=== PATIENT | male | born 1945 | race Caucasian/White ===

== ENCOUNTER 2020-11-16 11:08 | Inpatient (IN) | payer OTHER, MEDICARE ==
[~2020-11-16] VITALS: Ht 177.8 cm; Wt 65.5 kg
[2020-11-16] MEDS ORDERED: FINA5 PO (11:21)
[2020-11-16] MEDS ORDERED: STIOLTO RESPIMAT4 G1 INH (11:21)
[2020-11-16 11:29] LABS: BASOPHILS ABSOLUTE AUTO 0.05 K/mm3 (0.00-0.23); BASOPHILS PERCENT AUTO 0 % (0-2); EOSINOPHILS ABSOLUTE AUTO 0.81 K/mm3 (0.00-0.68); EOSINOPHILS PERCENT AUTO 7 % (0-6); Hematocrit 39.1 % (37.0-53.0); Hemoglobin 13.2 g/dL (13.5-17.5); IMMATURE GRAN ABSOLUTE AUTO 0.07 K/mm3 (0.00-0.10); IMMATURE GRAN PERCENT AUTO 1 % (0-1); LYMPHOCYTES ABSOLUTE AUTO 2.13 K/mm3 (0.84-5.20); LYMPHOCYTES PERCENT AUTO 17 % (21-46); MONOCYTES ABSOLUTE AUTO 0.68 K/mm3 (0.16-1.47); MONOCYTES PERCENT AUTO 5 % (4-13); Mean Corpuscular HGB Conc 33.8 g/dL (31.5-36.5); Mean Corpuscular Volume 95 fL (80-100); NEUTROPHILS ABSOLUTE AUTO 8.77 K/mm3 (1.96-9.15); NEUTROPHILS PERCENT AUTO 70 % (41-73); Platelet Count 200 K/mm3 (150-400); RDW Coefficient Variation 13.6 % (11.7-14.2); RDW Standard Deviation 47.3 fL (35.1-46.3); Red Blood Cell Count 4.12 M/mm3 (4.30-5.90); White Blood Cell Count 12.51 K/mm3 (4.00-11.30)
[2020-11-16 11:46] LABS: Base Excess Venous -3.4 mmol/L; Bicarbonate Venous 21.4 mmol/L (24.0-30.0); PCO2 Venous 48 mmHg (38-42); PO2 Venous 98 mmHg (38-42); pH Blood Venous 7.29 (7.34-7.37)
[2020-11-16 11:48] LABS: Alanine Aminotransfer (ALT/SGP 15 U/L (12-78); Albumin, Blood 3.5 g/dL (3.4-5.0); Albumin/Globulin Ratio 0.9 (0.8-1.8); Alk Phos 93 U/L (50-136); Anion Gap 7 mmol/L (6-16); Aspartate Aminotrans (AST/SGOT 31 U/L (12-37); Bilirubin, Total 0.4 mg/dL (0.1-1.0); Blood Urea Nitrogen 16 mg/dL (8-24); Bun/Creatinine Ratio 16.3 (12.0-20.0); CO2, Blood 24 mmol/L (21-32); Calcium, Blood 8.4 mg/dL (8.5-10.1); Chloride, Blood 108 mmol/L (98-108); Creatinine, Blood 0.98 mg/dL (0.60-1.20); Glomerular Filtration Rate >60 (60-); Glucose, Blood 122 mg/dL (70-99); Potassium, Blood 4.7 mmol/L (3.5-5.5); Sodium, Blood 139 mmol/L (136-145); Total Protein, Blood 7.5 g/dL (6.4-8.2)
[2020-11-16] MEDS ORDERED: ALBU90OI INH (13:19)
--- NOTE | 2020-11-16 19:37 | NUR ---
ADMIT NOTE RECIEVED REPORT FROM KORI AGUSTIN IN ED. PT TO ROOM AT 1615. PT ORIENTED TO ROOM AND CALL LIGHT. EDUCATED ON FALL RISK. PT STATES HIS SOB INCREASED THIS AM AND HE TOOK HIS LAST DOSES OF HIS HOME MEDICATIONS. PT STATES THAT HE LIVES WITH HIS DAUGHTER IN [place] AND HAS CAREGIVERS THAT ASSIST HIM M/T/W/F FROM AN AGENCY. WHEN ASKED WHEN HE LAST ATE, PT STATES MONDAY/MONDAY, WHEN INQUIRED FURTHER PT STATES BECAUSE NO ONE WILL MAKE IT (FOOD) FOR ME. PT A&Ox4; [place]; COOPERATIVE WITH CARE. PT RESTING IN BED. INCONTINENT EPISODE IN ED, HAS ATTENDS IN PLACE. PT REPORTS SOB AT REST, SPO2 94-95% ON RA; PT USING ACCESSORY MUSCLES, HAS DRY HACKING COUGH; LS WHEEZING T/O; NOTIFIED RT OF NEED FOR NEB. NOTIFIED DR ESTRADA OF HOME MEDICATIONS, NEW ORDER FOR Q2 PRN ALBUTEROL. ABD DISTENDED, DENIES HERNAI. PER TELE SINUS TACH 100'S. OTHER VSS. NO OTHER ACUTE CHANGES NOTED. REPORT GIVEN TO ONCOMING RN. I HAVE REVIEWED AND AGREE WITH STUDENT RN CHARTING.
[2020-11-17 03:59] LABS: BASOPHILS PERCENT AUTO 0 % (0-2); EOSINOPHILS PERCENT AUTO 0 % (0-6); Hematocrit 32.1 % (37.0-53.0); Hemoglobin 10.7 g/dL (13.5-17.5); IMMATURE GRAN ABSOLUTE AUTO 0.02 K/mm3 (0.00-0.10); IMMATURE GRAN PERCENT AUTO 0 % (0-1); LYMPHOCYTES PERCENT AUTO 10 % (21-46); MONOCYTES ABSOLUTE AUTO 0.04 K/mm3 (0.16-1.47); MONOCYTES PERCENT AUTO 1 % (4-13); Mean Corpuscular HGB 31.4 pg (26.0-34.0); Mean Corpuscular HGB Conc 33.3 g/dL (31.5-36.5); Mean Corpuscular Volume 94 fL (80-100); Mean Platelet Volume 11.6 fL (9.1-12.4); NEUTROPHILS ABSOLUTE AUTO 5.65 K/mm3 (1.96-9.15); NEUTROPHILS PERCENT AUTO 90 % (41-73); Platelet Count 193 K/mm3 (150-400); RDW Coefficient Variation 13.7 % (11.7-14.2); RDW Standard Deviation 46.8 fL (35.1-46.3); Red Blood Cell Count 3.41 M/mm3 (4.30-5.90); White Blood Cell Count 6.31 K/mm3 (4.00-11.30)
[2020-11-17 04:24] LABS: Alanine Aminotransfer (ALT/SGP 12 U/L (12-78); Alk Phos 73 U/L (50-136); Anion Gap 7 mmol/L (6-16); Aspartate Aminotrans (AST/SGOT 12 U/L (12-37); Bilirubin, Total 0.4 mg/dL (0.1-1.0); Blood Urea Nitrogen 21 mg/dL (8-24); Bun/Creatinine Ratio 20.6 (12.0-20.0); CO2, Blood 23 mmol/L (21-32); Calcium, Blood 8.2 mg/dL (8.5-10.1); Chloride, Blood 109 mmol/L (98-108); Creatinine, Blood 1.02 mg/dL (0.60-1.20); Globulin, Blood 3.1 g/dL (2.2-4.0); Glomerular Filtration Rate >60 (60-); Glucose, Blood 148 mg/dL (70-99); Magnesium, Blood 2.4 mg/dL (1.6-2.4); Potassium, Blood 3.8 mmol/L (3.5-5.5); Sodium, Blood 139 mmol/L (136-145); Total Protein, Blood 6.1 g/dL (6.4-8.2)
--- NOTE | 2020-11-17 05:25 | NUR ---
SHIFT SUMMARY PT A/O X4. RESPIRATIONS EVEN AND UNLABORED. SPO2 >94% ON RA. WHEEZES T/O. PT USING FLUTTER VALVE AT BEDSIDE. PT COUGHING WITH NONPRODUCTIVE COUGH WHEN DEEP BREATHING. RT MANAGING BREATHING TREATMENTS. TELE NS IN THE 90S. NS GTT INFUSING PER ORDERS. PT PROVIDED WITH 5MG MELATONIN PER PATIENT REQUEST/ORDER, PT DENIES EFFECTIVENESS STATING "I TAKE 4MG MELATONIN THAT MUST HAVE BEEN 1MG. THAT WAS A BABY DOSE." NO EVENTS OVER NIGHT. VSS.
--- NOTE | 2020-11-17 06:45 | NUR ---
THIS RN AGREES W/ STUDENT NURSE BRENNON's NOTE & SHIFT ASSESSMENT.
--- NOTE | 2020-11-17 10:17 | NUR ---
AM NOTE PT ALERT, ORIENTED x4. [place]. CALM AND COOPERATIVE WITH CARE. PT ON BIPAP DURING REPORT BUT HAS BEEN OFF SINCE 709 THIS AM, SPO2 >90% ON RA. LS EXP WHEEZING T/O, IMPROVED FROM PREVIOSU DAY, SOB WITH MINIMAL ACITIVY, BUT PT STATES IT HAS IMPROVED SINCE ADMISSION. PT ABLE TO SPEAK IN FULL SENTANCES. PT DENIES PAIN, CHEST PAIN, DIZZINESS/LIGHTHEADEDNESS AND NAUSEA. NO OTHER ACUTE CHANGES NOTED. VSS. WILL CONTINUE TO MONITOR.
--- NOTE | 2020-11-17 17:59 | NUR ---
SHIFT SUMMARY PT GOES INTO RESPIRATORY DISTRESS WITH MOVEMENT/ACTIVITY; BIPAP PLACED FOR RESCUS TWICE DURING SHIFT. NO OTHER SIGNIFICANT CHANGES NOTED. PT DECLINED GETTING UP IN A RECLINE THIS AFTERNOON. VSS. WILL CONTINUE TO MONITOR UNTIL REPORT GIVEN TO ONCOMING RN.
--- NOTE | 2020-11-17 22:07 | NUR ---
WAS ALERT AND ATCHING TV AT SHIFT COMMENCE. LATER RECEIVED HS MEDS, TOLERATEDWELL. HOB AT APPROX 75 DEGREES AND CALL LIGHT IN REACH. VOICED HE WANTED TO SLEEP AND REQUESTED FEW INTERRUPTIONS. INSTRUCTED NURSE TO "CLOSE THE DOOR", WHICH NURSE DID. WILL CONTINUE TO MONITOR
--- NOTE | 2020-11-18 04:13 | NUR ---
SHIFT SUMMARY HAS BEEN RESTING WITH FEW INTERRUPTIONS SINCE AROUND 2300. VOICED HE DIDNT WANT TO BE AWAKENED UNTIL AROUND 0400 SO HE COULD GET SOME SLEEP. HOWEVER, ABOUT 0330 HE WOKE UP WITH SOB AND REQUESTED RESP TREATMENT. THIS WAS GIVEN ALONG WITH PLACING BIPAP ON . BIPAP REMAINS ON AT THIS TIME HE STILL WAS HAVING RESP DIFFICULTIES. STATED THE BIPAP WAS HELPING, NOTED SATS IN THE 90'S ND HR DROPPING TO 116 FROM THE 130' - 140'S. STATED HE WAS FEELING BETER. BIPAP REMAINS ON. CALL LIGHT IN REACH
--- NOTE | 2020-11-18 07:12 | NUR ---
MED TELE REMOVED PER MD ORDER. CALL LIGHT IN REACH
--- NOTE | 2020-11-18 18:09 | NUR ---
SHIFT NOTE PT HAS BEEN RESTING WELL IN BED T/O THE DAY. PT WITH INCREASED SOB WITH MINIMAL EXERTION. REMAINS ON RA WITH SPO2 OF 99%. PT UPPER [place]. PT EDUCATED ABOUT CARDIZEM CHANGES WHICH HE EXPRESSED UNDERSTANDING OF. GRANDDAUGHTER CAME TO VISIT. PT WILL BE OBSERVED OVERNIGHT HE HAD INCREASE SOB WITH AMBULATION
[2020-11-19 04:34] LABS: BASOPHILS ABSOLUTE AUTO 0.01 K/mm3 (0.00-0.23); BASOPHILS PERCENT AUTO 0 % (0-2); EOSINOPHILS PERCENT AUTO 0 % (0-6); Hematocrit 36.1 % (37.0-53.0); Hemoglobin 11.9 g/dL (13.5-17.5); IMMATURE GRAN ABSOLUTE AUTO 0.11 K/mm3 (0.00-0.10); IMMATURE GRAN PERCENT AUTO 1 % (0-1); LYMPHOCYTES ABSOLUTE AUTO 0.39 K/mm3 (0.84-5.20); LYMPHOCYTES PERCENT AUTO 3 % (21-46); MONOCYTES ABSOLUTE AUTO 0.37 K/mm3 (0.16-1.47); MONOCYTES PERCENT AUTO 3 % (4-13); Mean Corpuscular HGB 30.9 pg (26.0-34.0); Mean Corpuscular Volume 94 fL (80-100); Mean Platelet Volume 11.9 fL (9.1-12.4); NEUTROPHILS ABSOLUTE AUTO 12.34 K/mm3 (1.96-9.15); NEUTROPHILS PERCENT AUTO 93 % (41-73); Platelet Count 215 K/mm3 (150-400); RDW Coefficient Variation 14.4 % (11.7-14.2); RDW Standard Deviation 49.6 fL (35.1-46.3); Red Blood Cell Count 3.85 M/mm3 (4.30-5.90); White Blood Cell Count 13.22 K/mm3 (4.00-11.30)
[2020-11-19 04:49] LABS: Anion Gap 8 mmol/L (6-16); Blood Urea Nitrogen 27 mg/dL (8-24); Bun/Creatinine Ratio 26.5 (12.0-20.0); CO2, Blood 23 mmol/L (21-32); Calcium, Blood 8.4 mg/dL (8.5-10.1); Chloride, Blood 111 mmol/L (98-108); Creatinine, Blood 1.02 mg/dL (0.60-1.20); Glomerular Filtration Rate >60 (60-); Glucose, Blood 112 mg/dL (70-99); Magnesium, Blood 2.2 mg/dL (1.6-2.4); Potassium, Blood 3.8 mmol/L (3.5-5.5); Sodium, Blood 142 mmol/L (136-145)
--- NOTE | 2020-11-19 04:59 | NUR ---
SHIFT SUMMARY A/O, ABLE TO MAKE NEEDS KNOWN. COOPERATIVE; HOWEVER, IRRITABLE AT TIMES. CALLS AND ANSWERS QUESTIONS APPOPRIATELY. NO C/O PAIN/DISCOMFORT. VSS/AFEBRILE. APPEARED TO REST MUCH OF THE NIGHT. NO BIPAP, REMAINED ON RA WITH SPO2 >90%. DID NOT GET UP OVERNIGHT; UTILIZED URINAL AT BEDSIDE. REQUESTED TO NOT BE DISTURBED. BED REMAINED IN LOWEST POSITION. CALL LIGHT AND BELONGINGS WITHIN REACH. CONTINUE WITH CURRENT PLAN OF CARE. REPORT TO ONCOMING RN.
[2020-11-19] MEDS ORDERED: BUSP5 PO (10:28)
[2020-11-19] MEDS ORDERED: DILT180 PO (10:29)
[2020-11-19] MEDS ORDERED: Prednisone10 MG PO (10:32)
--- NOTE | 2020-11-19 15:16 | NUR ---
PT IV REMOVED AND PRESSURE DRESSED PT EDUCATED TO REMOVE DRESSING IN 20 MINUTES. PT EDUCATED ON USE OF O2 CANISTER AND TIMES TO USE O2, PT EXPRESSED UNDERSTANDING. PT EDUCATED ON NEW MEDICATIONS AND POSSIBLE SIDE EFFECTS OF MEDUICATIONS WHICH HE EXPRESSED UNDERSTANDING OF AND AGREES THAT HE WILL CALL IF HE HAS QUESTIONS WHEN HE GETS HOME.
== END 2020-11-19 14:52 | disposition home or self-care (01) | DRG 189 ==
LOC: ER 11:08 → PCU 13:33
PROVIDERS: Emergency Medicine; Internal Medicine; Nurse Practitioner Acute Care; ADMIT Internal Medicine
PROC: 5A09357 Assistance with Respiratory Ventilation, Less than 24 Consecutive Hours, Continuous Positive Airway Pressure (ICD-10-PCS; principal; 2020-11-16)
DX: J96.01 Acute respiratory failure with hypoxia (principal); J44.1 Chronic obstructive pulmonary disease with (acute) exacerbation; I48.20 Chronic atrial fibrillation, unspecified; R65.10 Systemic inflammatory response syndrome (SIRS) of non-infectious origin without acute organ dysfunction; I25.10 Atherosclerotic heart disease of native coronary artery without angina pectoris; I10 Essential (primary) hypertension; F41.9 Anxiety disorder, unspecified; R56.9 Unspecified convulsions; N40.0 Benign prostatic hyperplasia without lower urinary tract symptoms; E78.5 Hyperlipidemia, unspecified; F17.210 Nicotine dependence, cigarettes, uncomplicated
CPT/HCPCS: 36415; 71045; 80048; 80053; 82803; 83735; 85025; 93005; 93010; 94640; 94644; 94660; 94667; 94761; 94762; 96365; 96367; 97162; 97165; 97530; 99285-25; A9270; J0456; J1650; J2930; J3475; J7030; J7050

== ENCOUNTER 2021-01-30 13:12 | Inpatient (IN) | payer OTHER, MEDICARE ==
[~2021-01-30] VITALS: Ht 172.7 cm; Wt 60.2 kg
[~2021-01-30 13:12] MED LIST: ALBU90OI INH; BUSP5 PO; DILT180 PO; FINA5 PO; Prednisone10 MG PO; STIOLTO RESPIMAT4 G1 INH
[2021-01-30 13:29] LABS: BASOPHILS ABSOLUTE AUTO 0.07 K/mm3 (0.00-0.23); BASOPHILS PERCENT AUTO 1 % (0-2); EOSINOPHILS ABSOLUTE AUTO 0.83 K/mm3 (0.00-0.68); EOSINOPHILS PERCENT AUTO 8 % (0-6); Hematocrit 39.4 % (37.0-53.0); Hemoglobin 12.7 g/dL (13.5-17.5); IMMATURE GRAN ABSOLUTE AUTO 0.04 K/mm3 (0.00-0.10); IMMATURE GRAN PERCENT AUTO 0 % (0-1); LYMPHOCYTES ABSOLUTE AUTO 2.77 K/mm3 (0.84-5.20); LYMPHOCYTES PERCENT AUTO 26 % (21-46); MONOCYTES ABSOLUTE AUTO 1.04 K/mm3 (0.16-1.47); MONOCYTES PERCENT AUTO 10 % (4-13); Mean Corpuscular HGB 30.8 pg (26.0-34.0); Mean Corpuscular HGB Conc 32.2 g/dL (31.5-36.5); Mean Corpuscular Volume 95 fL (80-100); Mean Platelet Volume 10.7 fL (9.1-12.4); NEUTROPHILS ABSOLUTE AUTO 6.09 K/mm3 (1.96-9.15); NEUTROPHILS PERCENT AUTO 56 % (41-73); Platelet Count 275 K/mm3 (150-400); RDW Coefficient Variation 13.8 % (11.7-14.2); RDW Standard Deviation 48.6 fL (35.1-46.3); Red Blood Cell Count 4.13 M/mm3 (4.30-5.90); White Blood Cell Count 10.84 K/mm3 (4.00-11.30)
[2021-01-30 13:44] LABS: Alanine Aminotransfer (ALT/SGP 14 U/L (12-78); Albumin, Blood 3.8 g/dL (3.4-5.0); Albumin/Globulin Ratio 1.1 (0.8-1.8); Alk Phos 98 U/L (50-136); Anion Gap 7 mmol/L (6-16); Aspartate Aminotrans (AST/SGOT 13 U/L (12-37); Bilirubin, Total 0.5 mg/dL (0.1-1.0); Blood Urea Nitrogen 15 mg/dL (8-24); CO2, Blood 24 mmol/L (21-32); Calcium, Blood 8.6 mg/dL (8.5-10.1); Chloride, Blood 106 mmol/L (98-108); Creatinine, Blood 1.07 mg/dL (0.60-1.20); Globulin, Blood 3.5 g/dL (2.2-4.0); Glomerular Filtration Rate >60 (60-); Glucose, Blood 141 mg/dL (70-99); Sodium, Blood 137 mmol/L (136-145); Total Protein, Blood 7.3 g/dL (6.4-8.2); Troponin I <0.015 ng/mL (0.000-0.040)
[2021-01-31 04:00] LABS: BASOPHILS PERCENT AUTO 0 % (0-2); EOSINOPHILS PERCENT AUTO 0 % (0-6); Hematocrit 36.6 % (37.0-53.0); Hemoglobin 12.2 g/dL (13.5-17.5); Mean Corpuscular HGB 31.3 pg (26.0-34.0); Mean Corpuscular HGB Conc 33.3 g/dL (31.5-36.5); Mean Corpuscular Volume 94 fL (80-100); Mean Platelet Volume 10.6 fL (9.1-12.4); Platelet Count 227 K/mm3 (150-400); RDW Coefficient Variation 13.9 % (11.7-14.2); RDW Standard Deviation 47.6 fL (35.1-46.3); White Blood Cell Count 5.93 K/mm3 (4.00-11.30)
[2021-01-31 04:01] LABS: IMMATURE GRAN ABSOLUTE AUTO 0.02 K/mm3 (0.00-0.10); IMMATURE GRAN PERCENT AUTO 0 % (0-1); LYMPHOCYTES ABSOLUTE AUTO 0.63 K/mm3 (0.84-5.20); LYMPHOCYTES PERCENT AUTO 11 % (21-46); MONOCYTES ABSOLUTE AUTO 0.03 K/mm3 (0.16-1.47); MONOCYTES PERCENT AUTO 1 % (4-13); NEUTROPHILS ABSOLUTE AUTO 5.25 K/mm3 (1.96-9.15); NEUTROPHILS PERCENT AUTO 89 % (41-73)
[2021-01-31 04:19] LABS: Anion Gap 10 mmol/L (6-16); Blood Urea Nitrogen 20 mg/dL (8-24); Bun/Creatinine Ratio 18.3 (12.0-20.0); CO2, Blood 21 mmol/L (21-32); Calcium, Blood 8.8 mg/dL (8.5-10.1); Chloride, Blood 107 mmol/L (98-108); Creatinine, Blood 1.09 mg/dL (0.60-1.20); Glomerular Filtration Rate >60 (60-); Glucose, Blood 123 mg/dL (70-99); Potassium, Blood 4.3 mmol/L (3.5-5.5); Sodium, Blood 138 mmol/L (136-145)
--- NOTE | 2021-01-31 05:49 | NUR ---
SHIFT SUMMARY PT IS ALERT AND ORIENTED X4. VITAL SIGNS ARE STABLE AND SATS ARE ABOVE 90% ON 2L NC; BIPAP FIO2 25%. THERE HAVE BEEN NO ACUTE CHANGES. PT DENIES CHEST PAIN OR SOB. PT USING URINAL WITH BRIEF IN PLACE DUE TO SOME INCONTINENCE. CALL LIGHT IS WITHIN REACH.
--- NOTE | 2021-01-31 17:33 | NUR ---
PT GIVEN BED BATH, TELEMETRY DISCONTINUED, TRANSFER ORDERS PLACED, VSS, DILL WEAKLY WITH BLE WEAKER THAN BUE; PT VOIDED IN BRIEF SEVERAL TIMES, PT REPORTED GOOD APPETITE; PT INTERMITTENTLY ON 1-2LNC WITH WHEEZING WHEN REPOSITIONED; RT PROVIDED UPDRAFT TX PER OCT; PT HAS WET RATTLING COUGH THAT IS UNPRODUCTIVE PER HIS REPORT; PT SINUS TACHYCARDIC RATE IN 110'S; PT DENIES ADDITIONAL CONCERNS AT THIS TIME
--- NOTE | 2021-01-31 20:15 | NUR ---
ASSUMED CARE PT IS ALERT AND ORIENTED. DENIES CHEST PAIN SOB. REPORT BACK PAINOF 5/10. THIS NURSE PROVIDED PAIN MANAGMENT ALERTNATIVES USCH READJUSTING IN BED OR MEDICATION, PT REFUSED. PT'S VITALS ARE STABLE WITH SATS ABOVE 92% ON 2L NC. CALL LIGHT IS WITHIN REACH. WILL CONTINUE TO MONITOR.
--- NOTE | 2021-01-31 23:38 | NUR ---
PT REFUSED MEDICATION. VERY AGITATED AND CUSSING "GET THE F OUT OF HERE," BECAUSE HE WOULD LIKE IT IF WE DID NOT DISTURB HIM WHILE SLEEPING. STS MEDICATION IS KEEPING HIM AWAKE.
--- NOTE | 2021-02-01 05:51 | NUR ---
SHIFT SUMMARY PT IS ALERT AND ORIETED. HAS BEEN VERY IRRITATED WITH STAFF AND REFUSING CARE BECAUSE HE WANTS SLEEP. PT ASKED TO BE LEFT ALONE THIS MORNING. PT HAS BEEN REFUSING TURNS, AND BRIEF CHECKS AND CHANGES. VITALS ARE STABLE. LABS WERE PUSHED TO 0700 PER CHARGE NURSE. SATS ARE STABLE AND ON 2LNC. CALL LIGHT IS WITHIN REACH.
--- NOTE | 2021-02-01 06:30 | NUR ---
PT AWAKE TALENT DEVELOPMENT COORDINATOR WAS ABLE TO CHANGE AND CLEAN PT UP. PT TOLERATED WELL. PT STATED THE HE DOES NOT REMEMBER REFUSING CARE LAST NIGHT. PT NOW PLEASANT BUT REFUSED SOLUMEDROL. GAVE PT MED EDUCATION, PT STILL REFUSED.
[2021-02-01 07:16] LABS: BASOPHILS PERCENT AUTO 0 % (0-2); EOSINOPHILS PERCENT AUTO 0 % (0-6); Hematocrit 33.1 % (37.0-53.0); Hemoglobin 11.2 g/dL (13.5-17.5); IMMATURE GRAN ABSOLUTE AUTO 0.06 K/mm3 (0.00-0.10); IMMATURE GRAN PERCENT AUTO 1 % (0-1); LYMPHOCYTES ABSOLUTE AUTO 0.48 K/mm3 (0.84-5.20); LYMPHOCYTES PERCENT AUTO 4 % (21-46); MONOCYTES ABSOLUTE AUTO 0.37 K/mm3 (0.16-1.47); MONOCYTES PERCENT AUTO 3 % (4-13); Mean Corpuscular HGB 31.1 pg (26.0-34.0); Mean Corpuscular HGB Conc 33.8 g/dL (31.5-36.5); Mean Corpuscular Volume 92 fL (80-100); Mean Platelet Volume 10.9 fL (9.1-12.4); NEUTROPHILS ABSOLUTE AUTO 12.01 K/mm3 (1.96-9.15); NEUTROPHILS PERCENT AUTO 93 % (41-73); Platelet Count 215 K/mm3 (150-400); RDW Coefficient Variation 14.3 % (11.7-14.2); RDW Standard Deviation 48.3 fL (35.1-46.3); White Blood Cell Count 12.92 K/mm3 (4.00-11.30)
[2021-02-01 07:35] LABS: Calcium, Blood 8.5 mg/dL (8.5-10.1); Creatinine, Blood 1.27 mg/dL (0.60-1.20); Magnesium, Blood 2.2 mg/dL (1.6-2.4); Potassium, Blood 4.1 mmol/L (3.5-5.5)
[2021-02-01] MEDS ORDERED: IPRAT-ALBUT 0.5-3 ML INH (13:27)
[2021-02-01] MEDS ORDERED: AZIT250 PO (13:28)
[2021-02-01] MEDS ORDERED: Prednisone10 MG PO (13:30)
--- NOTE | 2021-02-01 15:18 | NUR ---
DISCHARGE DC INSTRUCTIONS PROVIDED TO PT. PT EDUCATED ON ALL CHANGES AND FOLLOW-UP APPOINTMENTS. ALL QUESTIONS ANSWERED. CARE MANAGEMENT SET UP HOME NEBULIZER AND HOME O2. FAMILY CALLED AND NOTIFIED PER PT REQUEST. PT TO BE TAKEN OUT BY WC.
== END 2021-02-01 16:15 | disposition home health service (06) | DRG 189 ==
LOC: ER 13:12 → PCU 16:32 → ERHOLD 16:32 → PCU 19:41
PROVIDERS: Emergency Medicine; Nurse Practitioner Acute Care; ADMIT Internal Medicine
PROC: 5A09357 Assistance with Respiratory Ventilation, Less than 24 Consecutive Hours, Continuous Positive Airway Pressure (ICD-10-PCS; principal; 2021-01-30)
DX: J96.21 Acute and chronic respiratory failure with hypoxia (principal); E43 Unspecified severe protein-calorie malnutrition; J44.1 Chronic obstructive pulmonary disease with (acute) exacerbation; Z68.1 Body mass index [BMI] 19.9 or less, adult; E44.0 Moderate protein-calorie malnutrition; J96.22 Acute and chronic respiratory failure with hypercapnia; I25.10 Atherosclerotic heart disease of native coronary artery without angina pectoris; F17.210 Nicotine dependence, cigarettes, uncomplicated; I10 Essential (primary) hypertension; Z95.5 Presence of coronary angioplasty implant and graft; Z99.81 Dependence on supplemental oxygen
CPT/HCPCS: 36415; 71045; 80048; 80053; 83735; 83880; 84145; 84484; 85025; 85379; 93005; 93010; 94640; 94644; 94660; 94761; 94762; 96374; 99285-25; A9270; J1650; J2930

== ENCOUNTER 2021-09-23 01:17 | Inpatient (IN) | payer OTHER ==
[~2021-09-23] VITALS: Ht 175.3 cm; Wt 64.7 kg
[~2021-09-23 01:17] MED LIST changes: +AZIT250 PO; +IPRAT-ALBUT 0.5-3 ML INH
[2021-09-23 01:27] LABS: PCO2 Arterial 46.2 mmHg (35-45); pH Blood Arterial 7.23 (7.35-7.45)
[2021-09-23 02:04] LABS: Influenza A, PCR NEGATIVE (NEGATIVE); Influenza B, PCR NEGATIVE (NEGATIVE); Resp Syncytial Virus, PCR NEGATIVE (NEGATIVE); SARS-Cov-2 (COVID-19) PCR, MMC NEGATIVE (NEGATIVE)
[2021-09-23 02:04] LABS: Albumin, Blood 3.7 g/dL (3.4-5.0); BASOPHILS ABSOLUTE AUTO 0.06 K/mm3 (0.00-0.23); BASOPHILS PERCENT AUTO 1 % (0-2); Bilirubin, Total 0.5 mg/dL (0.1-1.0); Calcium, Blood 8.8 mg/dL (8.5-10.1); Creatinine, Blood 1.23 mg/dL (0.60-1.20); EOSINOPHILS ABSOLUTE AUTO 0.66 K/mm3 (0.00-0.68); EOSINOPHILS PERCENT AUTO 5 % (0-6); Globulin, Blood 3.8 g/dL (2.2-4.0); Hematocrit 38.4 % (37.0-53.0); Hemoglobin 12.2 g/dL (13.5-17.5); IMMATURE GRAN ABSOLUTE AUTO 0.04 K/mm3 (0.00-0.10); IMMATURE GRAN PERCENT AUTO 0 % (0-1); LYMPHOCYTES ABSOLUTE AUTO 0.91 K/mm3 (0.84-5.20); LYMPHOCYTES PERCENT AUTO 7 % (21-46); MONOCYTES ABSOLUTE AUTO 0.72 K/mm3 (0.16-1.47); MONOCYTES PERCENT AUTO 6 % (4-13); Mean Corpuscular HGB 30.6 pg (26.0-34.0); Mean Corpuscular HGB Conc 31.8 g/dL (31.5-36.5); Mean Corpuscular Volume 96 fL (80-100); Mean Platelet Volume 11.6 fL (9.1-12.4); NEUTROPHILS ABSOLUTE AUTO 10.69 K/mm3 (1.96-9.15); NEUTROPHILS PERCENT AUTO 82 % (41-73); Platelet Count 224 K/mm3 (150-400); Potassium, Blood 4.7 mmol/L (3.5-5.5); RDW Coefficient Variation 14.2 % (11.7-14.2); RDW Standard Deviation 50.2 fL (35.1-46.3); Red Blood Cell Count 3.99 M/mm3 (4.30-5.90); Total Protein, Blood 7.5 g/dL (6.4-8.2); White Blood Cell Count 13.08 K/mm3 (4.00-11.30)
[2021-09-23 04:37] LABS: Thyroid Stimulating Hormone 4.92 uIU/mL (0.360-4.800)
[2021-09-23 05:44] LABS: Anti-Xa UFH, PHA Monitoring <0.10 IU/mL; International Normalized Ratio 1.05
[2021-09-23 07:40] LABS: Bicarbonate Venous 17.8 mmol/L (24.0-30.0); PCO2 Venous 33.8 mmHg (38-42); PO2 Venous 65.1 mmHg (38-42); pH Blood Venous 7.32 (7.34-7.37)
[2021-09-23 07:59] LABS: Free Thyroxine 1.21 ng/dL (0.70-1.60); Triiodothyronine, Free 2.35 pg/mL (2.18-3.98)
[2021-09-23 08:01] LABS: Glucose, Blood 145 mg/dL (70-99)
--- NOTE | 2021-09-23 13:57 | NUR ---
Spoke with Primary RN Riri and discussed case. Supportive visit this afternoon to establish rapport. Pt resting in bed and on AIRVO at time of visit. Pt reports having 2 daughters who live out of state. His 2 sons have since past away, one from suicide and the other for undisclosed medical reasons. Pt reports living at home with his daughter in law and her children. Pt reports daughter in law is supportive some of the time. Pt reports [facility]. He reports not seeing PCP on a regular basis. Assessed Pt's understanding of his health and COPD. Pt states his COPD is "bad". He states he has lived longer than what the doctors have told him. Continued therapeutic listening. Ended visit to allow Pt to continue to watch the [employer] on television. Palliative Care will remain available.
--- NOTE | 2021-09-23 17:04 | NUR ---
SHIFT SUMMARY; ASSUMED CARE AT 0700, BIPAP IN PLACE. APPEARS AGITATED AND FIDGITY. LAB TO ROOM TO DRAW LABS, REFUSED, DISCUSSED NEED FOR REPEAT LABS EVENTUALLY AGREES. BIPAP WORN UNTIL APPROX 0900, REQUESTED REMOVAL TO EAT. DISCUSSED WITH RT. RT TO ROOM AND PLACED ON AIRVO 30L 28%. A/A/OX4. SOMEWHAT DISHELVED, REFUSES BED BATH, ORAL CARE OR ANY HYGIENE. STATES HAD A BED BATH A HOME FROM CAREGIVER SEVERAL DAYS AGO AND THATS WHAT CAUSED THIS PROBLEM. COMPLIANT WITH CARE FOR REMAINING PORTION OF DAY. HEPARIN INSUFING AT 15GTT. REMAINED IN SINUS RHYTHYM, VSS, SATS 97%. REPOSITIONS SELF IN BED NEEDED AND USES URINAL. NO ACUTE CHANGES, WILL CONTINUE TO MONITOR AND TREAT UNTIL CHANGE OF SHIFT.
--- NOTE | 2021-09-24 05:55 | NUR ---
SHIFT SUMMARY PT ALERT AND ORIENTED X4. HR SR-ST 90-110'S. ON AIRVO 30L 23% FIO2. SATS OVER 96%. BP STABLE. HEP GTT INFUSING. VOIDING INDEPENDENTLY WITH BEDSIDE URINAL. UNCOOPERATIVE WITH CARE. REFUSES Q6 BLOOD SUGAR CHECKS "STATING, MY BLOOD SUGAR IS FINE". REFUSES BLOOD DRAWS OR FIGHTS AGAINST THEM. REFUSES A BREATHING TREATMENT AT 0330. AT 0500 HR STARTED TACHYING UP, RESPIRATIONS INCREASED, AND PT WAS WHEEZING T/O LUNGS BILATERALLY. RT NOTIFED, BREATHING TX ADMINISTERED. WHEEZING DECREASED SIGNIFICANTLY. PT NOW RESTING IN BED WITH CALL ALARM AT SIDE. WILL CONTINUE TO MONITOR UNTIL REPORT GIVEN TO DAYSHIFT RN.
--- NOTE | 2021-09-24 15:08 | NUR ---
Update: MD notified regarding frequent conversion between Afib and ST. ordered additional PO Cardizem IR dose to be administered now. Will continue to monitor.
--- NOTE | 2021-09-24 16:34 | NUR ---
Pt remains A&Ox4. VSS with exception to afternoon conversion between Afib and ST. When converted to afib, BK=541-181's. Scheduled PO Cardizem started with additional dose given in afternoon. No c/o pain. Afebrile. AUO. No BM. Tolerating current diet. Successfully weaned pt to RA. PT attempted eval- pt refused despite numerous attempts to re-educate. Attempted to help pt to chair for meals, pt refused. Frequent rounds to ensure pt safety. Pt encouraged to reposition self q 2 hrs and offload pressure points to prevent pressure ulcers, pt verbalized understanding. Pt in no apparent distress at this time. Will continue to monitor until transfer of care to oncoming RN.
--- NOTE | 2021-09-24 19:30 | NUR ---
PATIENT'S HEART RATE UP TO 150'S-160'S AT 1836, IN A.FIB. DURING SHIFT CHANGE REPORT, PATIENT DENIED CHEST PAIN, PALPITATIONS, AND SHORTNESS OF BREATH. AT 1926, HE CONVERTED BACK TO SINUS RHYTHM AND HEART RATE WAS DOWN INTO THE LOW 100'S - 1TEENS.
--- NOTE | 2021-09-25 00:55 | NUR ---
DNR BAND PLACED TO PATIENT'S LEFT WRIST. VERIFIED WITH ELIZABETH CRESPO RN.
--- NOTE | 2021-09-25 03:32 | NUR ---
AT 0254, PATIENT'S HEART RATE SPIKED UP TO 170'S. HEART RATE BOUNCES UP TO 170'S, THEN DOWN TO 120'S, UP TO 160'S, DOWN TO 90, ETC. CONVERTED TO A.FIB. WENT INTO PATIENT'S ROOM. BP 123/82. DENIES CHEST PAIN, PALPITATIONS, AND SHORTNESS OF BREATH. SAYS THAT HE JUST CAN'T SLEEP BECAUSE HIS "STOMACH FEELS FULL". LAST BM WAS 09/21. ABD IS DISTENDED AND FEELS FULL. HEART RATE SPIKES OCCURRED DURING DAYSHIFT APPROX 12 HOURS AGO (1500) AND HE RECEIVED AN ADDITIONAL DOSE OF CARDIZEM. CALLED DR. HENLEY AND NOTIFIED HER OF THE ABOVE. ORDERS RECEIVED FOR ABD XRAY, BOWEL MEDS, AND CARDIZEM.
[2021-09-25 04:17] LABS: BASOPHILS ABSOLUTE AUTO 0.01 K/mm3 (0.00-0.23); BASOPHILS PERCENT AUTO 0 % (0-2); EOSINOPHILS PERCENT AUTO 0 % (0-6); Hematocrit 32.2 % (37.0-53.0); Hemoglobin 10.8 g/dL (13.5-17.5); IMMATURE GRAN PERCENT AUTO 1 % (0-1); LYMPHOCYTES ABSOLUTE AUTO 0.44 K/mm3 (0.84-5.20); LYMPHOCYTES PERCENT AUTO 3 % (21-46); MONOCYTES ABSOLUTE AUTO 0.38 K/mm3 (0.16-1.47); MONOCYTES PERCENT AUTO 3 % (4-13); Mean Corpuscular HGB 30.9 pg (26.0-34.0); Mean Corpuscular HGB Conc 33.5 g/dL (31.5-36.5); Mean Corpuscular Volume 92 fL (80-100); Mean Platelet Volume 11.6 fL (9.1-12.4); NEUTROPHILS ABSOLUTE AUTO 14.58 K/mm3 (1.96-9.15); NEUTROPHILS PERCENT AUTO 94 % (41-73); Platelet Count 189 K/mm3 (150-400); RDW Coefficient Variation 14.6 % (11.7-14.2); RDW Standard Deviation 49.4 fL (35.1-46.3); White Blood Cell Count 15.51 K/mm3 (4.00-11.30)
[2021-09-25 04:54] LABS: Anion Gap 10 mmol/L (6-16); Blood Urea Nitrogen 41 mg/dL (8-24); Bun/Creatinine Ratio 36.9 (12.0-20.0); CO2, Blood 19 mmol/L (21-32); Calcium, Blood 8.3 mg/dL (8.5-10.1); Chloride, Blood 111 mmol/L (98-108); Creatinine, Blood 1.11 mg/dL (0.60-1.20); Glomerular Filtration Rate >60 (60-); Glucose, Blood 132 mg/dL (70-99); Potassium, Blood 3.7 mmol/L (3.5-5.5); Sodium, Blood 140 mmol/L (136-145)
--- NOTE | 2021-09-25 05:06 | NUR ---
HEART RATE CONTINUED TO JUMP UP TO 150'S-170'S BUT THEN BOUNCE DOWN TO 90'S - LOW 100'S. TRENDED DOWN AND FINALLY CONVERTED TO SINUS RHYTHM AT 0448. HEART RATE IN THE 80'S-90'S AT THIS TIME.
--- NOTE | 2021-09-25 07:07 | NUR ---
SHIFT SUMMARY: PATIENT A/OX3. HAS DENIED PAIN THROUGHOUT THE SHIFT. HAD INTERMITTENT RUNS OF AFIB WITH RVR, OCCURING AT THE BEGINNING OF THE SHIFT AND APPROX 0300. AT THE BEGINNING OF THE SHIFT PATIENT CONVERTED BACK TO SINUS RHYTHM ON HIS OWN AT 1926. THEN AT 0254 HIS HEART RATE WENT UP AND HE CONVERTED TO AFIB. ADDITIONAL CARDIZEM 60 MG PO GIVEN AT 0357 AND HE CONVERTED BACK TO SINUS RHYTHM AT 8. DURING THAT TIME HIS HEART RATE WOULD JUMP UP TO THE 170'S AT TIMES. HE DENIED CHEST PAIN, SHORTNESS OF BREATH, AND PALPITATIONS DURING THESE EPISODES. ON ROOM AIR. HE HAS BEEN NAUSEAS THROUGHOUT THE SHIFT, STATES HIS ABD FEELS FULL. ZOFRAN AND COLACE GIVEN. ABD XRAY COMPLETED. REFUSED ALL REPOSITIONING. REFUSED ALL ORAL CARE, SKIN CARE. STATES HE DOESN'T WANT TO GET OUT OF BED "SO THE NURSES CAN CHECK SOMETHING OFF THEIR LIST." EDUCATED HIM REGARDING IMPORTANCE OF REPOSITIONING TO PREVENT ULCERS AND IMPORTANCE OF GETTING OUT OF BED TO MAINTAIN STRENGTH. STATES HE USES A CANE OR WALKER AT HOME AND THAT HE LIVES WITH HIS DAUGHTER IN [place] [facility]. REPORT GIVEN TO ONCAVEL SHEIKH.
--- NOTE | 2021-09-25 09:22 | NUR ---
UPDATE: Pt laying in bed with eyes closed. States that he is not doing well. When asked what was wrong Pt states that his "stomach hurts". RN asked what type of pain he stated "i'm just full". Asked when las BM was, pt did not know when. Offered suppository, pt declined. Offered prune juice, pt declined. Asked Pt if there was anything that does work, or anything he would like to help with his abd pain pt stated "no". Will continue to monitor and treat.
--- NOTE | 2021-09-25 15:15 | NUR ---
NOTIFIED DR BABIN OF ABD XRAY RESULTS. RESULTS RELAYED TO PT INCLUDING EDUCATION ABOUT THE IMPORTANCE OF PHYSICAL ACTIVITY TO HELP RESOLVE ILEUS. PT VERBALIZES UNDERSTANDING BUT DECLINES TO GET OOB. DECLINES TO HAVE PT COME WORK WITH HIM. STATES "I DON'T WANT TO GET OUT OF BED." HEPARIN GTT STOPPED PER ORDERS, PT REFUSES TO WEAR SCDs FOR VTE PROPHYLAXIS. DR BABIN NOTIFIED.
--- NOTE | 2021-09-25 18:13 | NUR ---
NO ACUTE EVENTS THIS SHIFT. PT CONTINUES TO REFUSE TO PARTICIPATE IN CARE, REFUSED PT THERAPY TODAY, REFUSED SOME MEDICATIONS, REFUSED TO GET OOB OR BE REPOSITIONED. PT APPEARS TO BE DEVELOPING AN ILEUS PER X RAY REPORT, DR BABIN NOTIFIED. PT EDUCATED ABOUT THE IMPORTANCE OF PHYSICAL ACTIVITY TO HELP RESOLVE ILEUS, PT DECLINED TO PARTICIPATE. PT STATUS CHANGED TO MEDICAL W TELE. WILL CONTINUE TO MONITOR AND REPORT TO NOC SHIFT RN.
--- NOTE | 2021-09-26 01:16 | NUR ---
SUMMARY OF CARE & TRANSFER PT TRANSFERRED TO MEDICAL FLOOR RM [phone] @0110. PRIOR TO THIS. PT AXO, IN SR WITH CONSTANT PACS. ON RA AND ALL VSS. PT REFUSING MULTIPLE ASPECTS OF CARE SUCH TRANSFERRING, STANDING, REPOSITIONING, ETC. PT SOMEWHAT DEMANDING BUT IS PLEASANT TO THIS RN. PT DENIES BM THIS SHIFT. PT USING URINAL. OTHERWISE, PT RESTING IN ROOM. UPON TRANSFER, ALL BELONGINGS WITH PT. PT TRANSFERRED W/OUT INCIDENT INTO NEW ROOM. KORI DURHAM ASSUMING CARE NOW.
--- NOTE | 2021-09-26 04:32 | NUR ---
SHIFT SUMMARY PT TRANSFERED FROM PCU AT APPROX 0100. PT REQUESTED ONLY A WARM BLANKET AFTER TRANSFER. DID NOT WANT TO BE BOTHERED OTHERWISE. DECLINED ANY REPOSITIONING OR CARE. USING URINAL IND AT BEDSIDE. PT APPEARS MALNOURISHED AND WEAK. NO EVENTS ON TELEMETRY THIS EVENING. HR SINUS RHYTHM IN THE 70'S-80'S. PT APPEARED TO SLEEP WELL AFTER TRANSFER. NO ACUTE CHANGES.
--- NOTE | 2021-09-26 05:15 | NUR ---
NOTFIED BY CARPET OR RUG LAYER HELPER NOVEMBER THAT PT CONVERTED TO AFIB IN THE 150'S AND THEN BACK TO SINUS AND WAS IN THE 40'S AND THE CAME BACK UP TO THE 70'S. BOTH EPISODES OF 150'S AND 40'S WERE VERY BRIEF. THIS IS NOT NEW FOR PT, HAVING MULTIPLE EPISODES THE NIGHT BEFORE OF CONVERTING BACK AND FORTH BETWEEN AFIB AND SR. PT CURRENTLY REMAINING IN SR IN THE 70'S.
[2021-09-26 08:45] LABS: BASOPHILS PERCENT AUTO 0 % (0-2); EOSINOPHILS PERCENT AUTO 0 % (0-6); Hematocrit 29.1 % (37.0-53.0); Hemoglobin 9.7 g/dL (13.5-17.5); IMMATURE GRAN ABSOLUTE AUTO 0.08 K/mm3 (0.00-0.10); IMMATURE GRAN PERCENT AUTO 1 % (0-1); LYMPHOCYTES ABSOLUTE AUTO 0.31 K/mm3 (0.84-5.20); LYMPHOCYTES PERCENT AUTO 4 % (21-46); MONOCYTES ABSOLUTE AUTO 0.17 K/mm3 (0.16-1.47); MONOCYTES PERCENT AUTO 2 % (4-13); Mean Corpuscular HGB Conc 33.3 g/dL (31.5-36.5); Mean Corpuscular Volume 93 fL (80-100); Mean Platelet Volume 11.7 fL (9.1-12.4); NEUTROPHILS ABSOLUTE AUTO 7.67 K/mm3 (1.96-9.15); NEUTROPHILS PERCENT AUTO 93 % (41-73); Platelet Count 152 K/mm3 (150-400); RDW Coefficient Variation 14.6 % (11.7-14.2); RDW Standard Deviation 49.8 fL (35.1-46.3); Red Blood Cell Count 3.13 M/mm3 (4.30-5.90); White Blood Cell Count 8.23 K/mm3 (4.00-11.30)
[2021-09-26 09:00] LABS: Anion Gap 6 mmol/L (6-16); Blood Urea Nitrogen 38 mg/dL (8-24); Bun/Creatinine Ratio 35.2 (12.0-20.0); CO2, Blood 20 mmol/L (21-32); Calcium, Blood 7.8 mg/dL (8.5-10.1); Chloride, Blood 116 mmol/L (98-108); Creatinine, Blood 1.08 mg/dL (0.60-1.20); Glomerular Filtration Rate >60 (60-); Glucose, Blood 118 mg/dL (70-99); Sodium, Blood 142 mmol/L (136-145)
--- NOTE | 2021-09-26 18:15 | NUR ---
SHIFT SUMMARY CONTINUED TO ENCOURAGE PT TO GET UP IN CHAIR TODAY AND HE CONTINUED TO ADAMENTLY SAY NO! HAS DENIED RESP DISTRESS OR PAIN TODAY. EATING WITH NO PROBLEM.
--- NOTE | 2021-09-27 04:32 | NUR ---
SHIFT SUMMARY PT CONTINUES TO BE NONCOMPLIANT WITH MOST THINGS. REFUSES TO GET OUT OF BED. REFUSES SOME PARTS OF ASSESSMENT. GETS ANGRY AT TIMES WHEN STAFF ATTEMPT CARE OR CONVERSATION. REFUSED LAB DRAW THIS AM. SOME WHEEZING NOTED WHEN GIVING HS MEDICATIONS. PT REPORTED THIS WAS BECAUSE HE WAS TRYING TO SLEEP AND I INTERRUPTED HIM AND IT UPSET. PT REMAINED ON RA. O2 SATS IN THE HIGH 90'S. NO ACUTE CHANGES THIS EVENING. VITAL SIGNS STABLE. WILL CONTINUE TO MONITOR PT ALLOWS.
[2021-09-27] MEDS ORDERED: Aspir 8181 MG PO (11:02)
[2021-09-27] MEDS ORDERED: ACET325 PO (11:02)
[2021-09-27] MEDS ORDERED: GUAI600T33 PO (11:03)
[2021-09-27] MEDS ORDERED: DILT60ER PO (11:03)
[2021-09-27] MEDS ORDERED: OMEP20ER PO (11:04)
[2021-09-27] MEDS ORDERED: PRED20 (11:05)
--- NOTE | 2021-09-27 14:42 | NUR ---
PT DISCHARGED AT 1330 WITH DISCHARGE INSTRUCTIONS INCLUDING THE IMPORTANCE OF TAKING PREDNISONE AND QUITTING ON A TAPER. PT TO PRIVATE CAR IN WHEELCHAIR, PIVOT TX BED TO CHAIR AND CHAIR TO CAR. PT HAS WHEEZE, BUT MANAGING ACTIVITY ON ROOM AIR WITH MOD HYSPNEA, BUT REFUSES NEB TX. TOLD GRANDSON WHO PICKED HIM UP ABOUT THE IMPORTANCE OF PREDNISONE TAPER. ALL BELONGINGS SENT HOME WITH PT.
== END 2021-09-27 13:57 | disposition home or self-care (01) | DRG 189 ==
LOC: ER 01:17 → ICUW 04:11 → PCU 04:11 → MEDS 09-26 01:04 → ENPENDDIS 09-27 10:17 → MEDS 09-27 13:57
PROVIDERS: Emergency Medicine; Internal Medicine; Student in an Organized Health Care Education/Training Program; ADMIT Family Medicine
PROC: 5A09357 Assistance with Respiratory Ventilation, Less than 24 Consecutive Hours, Continuous Positive Airway Pressure (ICD-10-PCS; principal; 2021-09-23)
DX: J96.21 Acute and chronic respiratory failure with hypoxia (principal); E43 Unspecified severe protein-calorie malnutrition; R65.11 Systemic inflammatory response syndrome (SIRS) of non-infectious origin with acute organ dysfunction; J44.1 Chronic obstructive pulmonary disease with (acute) exacerbation; K56.7 Ileus, unspecified; Z66 Do not resuscitate; Z20.822 Contact with and (suspected) exposure to COVID-19; Z53.29 Procedure and treatment not carried out because of patient's decision for other reasons; I48.91 Unspecified atrial fibrillation; E78.5 Hyperlipidemia, unspecified; N40.0 Benign prostatic hyperplasia without lower urinary tract symptoms; G89.29 Other chronic pain; J96.22 Acute and chronic respiratory failure with hypercapnia; I12.9 Hypertensive chronic kidney disease with stage 1 through stage 4 chronic kidney disease, or unspecified chronic kidney disease; N18.30 Chronic kidney disease, stage 3 unspecified; M54.9 Dorsalgia, unspecified; F17.200 Nicotine dependence, unspecified, uncomplicated; I25.10 Atherosclerotic heart disease of native coronary artery without angina pectoris; Z68.23 Body mass index [BMI] 23.0-23.9, adult; Z95.5 Presence of coronary angioplasty implant and graft; Z88.8 Allergy status to other drugs, medicaments and biological substances; Z79.52 Long term (current) use of systemic steroids; Z79.899 Other long term (current) drug therapy
CPT/HCPCS: 0241U; 36415; 36600; 71045; 74018; 80048; 80053; 82803; 82947; 83036; 83605; 83735; 83880; 84145; 84439; 84443; 84481; 84484; 85025; 85379; 85520; 85610; 87040; 87070; 87205; 93005; 93010; 93306; 94640; 94644; 94660; 94762; 96365; 96367; 96375; 96376; 99285-25; A9270; C9113; J0456; J0696; J1160; J1644; J2930; J7030; J7050

== ENCOUNTER 2022-02-03 11:45 | Inpatient (IN) | payer OTHER ==
[~2022-02-03] VITALS: Ht 182.9 cm; Wt 60.4 kg
[~2022-02-03 11:45] MED LIST changes: +ACET325 PO; +Aspir 8181 MG PO; +DILT60ER PO; +GUAI600T33 PO; +OMEP20ER PO; +PRED20
[2022-02-03 12:05] LABS: BASOPHILS ABSOLUTE AUTO 0.04 K/mm3 (0.00-0.23); BASOPHILS PERCENT AUTO 0 % (0-2); EOSINOPHILS ABSOLUTE AUTO 0.55 K/mm3 (0.00-0.68); EOSINOPHILS PERCENT AUTO 4 % (0-6); Hematocrit 37.3 % (37.0-53.0); IMMATURE GRAN ABSOLUTE AUTO 0.06 K/mm3 (0.00-0.10); IMMATURE GRAN PERCENT AUTO 0 % (0-1); LYMPHOCYTES ABSOLUTE AUTO 1.06 K/mm3 (0.84-5.20); LYMPHOCYTES PERCENT AUTO 8 % (21-46); MONOCYTES ABSOLUTE AUTO 0.83 K/mm3 (0.16-1.47); MONOCYTES PERCENT AUTO 6 % (4-13); Mean Corpuscular HGB 29.9 pg (26.0-34.0); Mean Corpuscular HGB Conc 32.2 g/dL (31.5-36.5); Mean Corpuscular Volume 93 fL (80-100); Mean Platelet Volume 11.3 fL (9.1-12.4); NEUTROPHILS ABSOLUTE AUTO 11.45 K/mm3 (1.96-9.15); NEUTROPHILS PERCENT AUTO 82 % (41-73); Platelet Count 254 K/mm3 (150-400); RDW Coefficient Variation 13.7 % (11.7-14.2); RDW Standard Deviation 46.9 fL (35.1-46.3); Red Blood Cell Count 4.02 M/mm3 (4.30-5.90); White Blood Cell Count 13.99 K/mm3 (4.00-11.30)
[2022-02-03 12:11] LABS: Base Excess Venous -6.8 mmol/L; Bicarbonate Venous 19.3 mmol/L (24.0-30.0); PO2 Venous 135 mmHg (38-42)
[2022-02-03 12:35] LABS: Albumin, Blood 3.6 g/dL (3.4-5.0); Bilirubin, Total 0.4 mg/dL (0.1-1.0); Bun/Creatinine Ratio 32.8 (12.0-20.0); Calcium, Blood 8.9 mg/dL (8.5-10.1); Creatinine, Blood 1.16 mg/dL (0.60-1.20); Globulin, Blood 3.5 g/dL (2.2-4.0); Potassium, Blood 4.6 mmol/L (3.5-5.5); Thyroid Stimulating Hormone 2.65 uIU/mL (0.360-4.800); Total Protein, Blood 7.1 g/dL (6.4-8.2)
[2022-02-03 13:35] LABS: Influenza A, PCR NEGATIVE (NEGATIVE); Influenza B, PCR NEGATIVE (NEGATIVE); Resp Syncytial Virus, PCR NEGATIVE (NEGATIVE); SARS-Cov-2 (COVID-19) PCR, MMC NEGATIVE (NEGATIVE)
--- NOTE | 2022-02-03 18:21 | NUR ---
PT ARRIVED TO [facility] AT APROX 1530 FROM ER. PT ALERT AND ORIENTED, ORIENTED TO CALL LIGHT, ROOM AND UNIT ROUTINES. PT DEMONSTRATES ABILITY TO USE CALL LIGHT. PT IS ON BIPAP ON ARRIVAL TO ROOM. CONTINUOUS TELEMETRY/SPO2 MONITORING PLACED PER MD ORDERS. PT TOLERATING BIPAP WELL. SPOKE WITH PT'S DTR IN [facility], SHE STATES THAT PT IS NONCOMPLIANT WITH HIS MEDICATIONS AT HOME AND HAS ONLY BEEN TAKING HIS INHALERS AND GUAIFENESIN. HE HAS NOT BEEN TAKING HIS DILTIAZEM. NO ACUTE EVENTS SINCE ARRIVAL. CALL LIGHT IN REACH, WILL CONTINUE TO MONITOR AND GIVE REPORT TO NOC SHIFT RN.
[2022-02-03 18:57] LABS: PCO2 Arterial 29.6 mmHg (35-45); PO2 Arterial 138 mmHg (80-100); pH Blood Arterial 7.35 (7.35-7.45)
[2022-02-03 23:47] LABS: Source, Urine Clean Catch
[2022-02-03 23:49] LABS: Bilirubin, Urine Neg (Neg); Blood, Urine Neg (Neg); Glucose Qualitative, Urine Neg (Neg); Ketones, Urine 3+ (Neg); Leukocyte Esterase, Urine Neg (Neg); Nitrite, Urine Neg (Neg); Protein, Urine Neg (Neg); Urobilinogen, Urine NORM (Normal)
[2022-02-03 23:50] LABS: Appearance, Urine Clear (Clear); Color, Urine Yellow (P-Yellow)
[2022-02-04 03:47] LABS: BASOPHILS ABSOLUTE AUTO 0.01 K/mm3 (0.00-0.23); BASOPHILS PERCENT AUTO 0 % (0-2); EOSINOPHILS PERCENT AUTO 0 % (0-6); Hematocrit 32.1 % (37.0-53.0); Hemoglobin 10.1 g/dL (13.5-17.5); IMMATURE GRAN ABSOLUTE AUTO 0.03 K/mm3 (0.00-0.10); IMMATURE GRAN PERCENT AUTO 1 % (0-1); LYMPHOCYTES ABSOLUTE AUTO 0.57 K/mm3 (0.84-5.20); LYMPHOCYTES PERCENT AUTO 10 % (21-46); MONOCYTES ABSOLUTE AUTO 0.03 K/mm3 (0.16-1.47); MONOCYTES PERCENT AUTO 1 % (4-13); Mean Corpuscular HGB 29.4 pg (26.0-34.0); Mean Corpuscular HGB Conc 31.5 g/dL (31.5-36.5); Mean Corpuscular Volume 93 fL (80-100); Mean Platelet Volume 11.2 fL (9.1-12.4); NEUTROPHILS ABSOLUTE AUTO 5.37 K/mm3 (1.96-9.15); NEUTROPHILS PERCENT AUTO 89 % (41-73); Platelet Count 190 K/mm3 (150-400); RDW Coefficient Variation 14.1 % (11.7-14.2); RDW Standard Deviation 47.7 fL (35.1-46.3); Red Blood Cell Count 3.44 M/mm3 (4.30-5.90); White Blood Cell Count 6.01 K/mm3 (4.00-11.30)
[2022-02-04 04:02] LABS: Bun/Creatinine Ratio 32.8 (12.0-20.0); Calcium, Blood 8.2 mg/dL (8.5-10.1); Creatinine, Blood 1.16 mg/dL (0.60-1.20); Potassium, Blood 4.9 mmol/L (3.5-5.5)
--- NOTE | 2022-02-04 04:20 | NUR ---
SHIFT SUMMARY NO ACUTE CHANGES THIS SHIFT. VSS. AXO. ON RA WITH SEVERE EXPIRATORY WHEEZING. WHEN WOB TOO MUCH, PT WANTS BIPAP AND WILL CALL FOR IT. ON 29/01 30%. IN SR. DRINKING WATER OCCASIONALLY BUT OTHERWISE NPO. PT HAS BEEN RESTING OFF AND ON T/O SHIFT. BED ALARM ON.
--- NOTE | 2022-02-04 12:31 | NUR ---
UPDATE DURING ASSESSMENT THIS AM PT APPEARS TO NOT HAVE SIGNS OF RESPIRATORY DISTRESS. PT COMFORTABLE IN BED ON RA. PHYSICIAN NOTIFIED AND ORDERS FOR PT TO INCREASE DIET TO MECH SOFT. PT ABLE TO TOLERATE PUDDING AND ENSURE WELL. DURING LUNCH PT HAD COUGHING FIT WHEN ATTEMPTING TO EAT. PT OXYGEN DROPPED TO TO 78%. PT PUT BACK ON BIPAP AND RT AT BEDSIDE. PHYSICIAN NOTIFIED OF INCIDENT. PT'S LUNCH HELD AT THIS TIME. OXYGEN SATURATION MAINTAINED ABOVE 95% ON BIPAP. SEE EHR FOR SETTINGS.
--- NOTE | 2022-02-04 13:54 | NUR ---
Initial Pal Care Visit - Update received from pt's bedside RN with request for visit today, due to pt's increased O2 and resp support needs, increased work of breathing, especially with attempting to eat lunch and pt's refusal of some medications and tx ordered. Pt in bed with bipap on when I arrived. He indicated it was an ok time to talk when asked. After introducing myself to pt we discussed how his day is going. He acknowledges he is struggling more with breathing. I gently broached the topic of noncompliance both at home and due to pt's refusal of lovenox and other treatments here in the hospital. I asked pt if his respiratory conditioned worsened and we could not improve his situation with O2/bipap, would he want to be intubated. He said yes. He also said yes, he would want nursing home ventilation if needed and he would want CPR. Pt does not appear to have good insight into his own actions worsening his health status. Pt lives with his DIL and grandchildren. He states this is a comfortable situation for him and he has a private room there. His son is . He was unable to find placement recently due to being a smoker. His DIL invited him to live with her at that time. H&P notes that pt has quit smoking some months ago. Pt reports he has a daughter also. Pt denies pain. He appears with slightly flat affect and anxious. He was not happy about not being able to eat when his saturations were dropping into the 70's. He requested some toiletries for oral care, which I got for him. Report on my visit given to his RN. Pal Care will follow from a distance and return if requested or indicated.
--- NOTE | 2022-02-04 17:59 | NUR ---
SHIFT SUMMARY PT ALERT AND ORIENTED X 4. HR STABLE, BP STABLE. NO CP OR PRESSURE. OXYGEN SATURATION MAINTAINED ABOVE 92% ON 2 L VIA NC OR BIPAP. SEE EHR FOR SETTINGS. PT BECOMES SOB WITH MINIMAL EXERTION. EXP WHEEZES T/O. PT REFUSING CARE AT TIMES. REFUSING SCD'S AND LOVENOX. PT REFUSING BIPAP AT TIMES. PHYSICIAN NOTIFIED OF PT'S O2 DROPPING THIS AM TO HIGH 70'S AFTER COUGHING EPISODE. ORDERS FOR ANXIETY MEDICATION D/T POSSIBILITY OF PT'S ANXIETY CAUSING SOB. OXYGEN SATURATION MAINTAINED ABOVE 92% ON 2 L VIA NC AT THIS TIME. CALL LIGHT WITHIN REACH. WILL CONT TO MONITOR UNTIL REPORT GIVEN TO NIGHTSHIFT RN.
--- NOTE | 2022-02-04 18:37 | NUR ---
UPDATE PT CURRENLTY ON 2 L VIA NC. OXYGEN SATURATION MAINTAINED ABOVE 95%. PT ABLE TO EAT DINNER AND TOLERATING DIET WELL. NO COUGHING OR INCREASE IN WORK OF BREATHING. WILL CONT TO MONITOR.
--- NOTE | 2022-02-05 00:35 | NUR ---
UPDATE UPON ENTERING PATIENT'S ROOM, PATIENT IS FOUND TO BE AUDIBLY WHEEZING AND IS LOW IN THE BED. ASKED PATIENT IF STAFF WAS ABLE TO REPOSITION HIM FOR BETTER LUNG EXPANSION BUT PATIENT YELLED AT STAFF AND REFUSED REPOSITIONING. PATIENT STATES "I AM FINE, I CAN DO IT ON MY OWN".
--- NOTE | 2022-02-05 05:51 | NUR ---
SHIFT SUMMARY PATIENT ALERT AND ORIENTED x3-4. REFUSING CARE/MEDICATIONS AT TIMES. VSS. PATIENT ON 2L NC OVERNIGHT, BIPAP AT BEDSIDE ON STANDBY. PATIENT ONLY TOLERATED BIPAP FOR ABOUT AN HOUR. O2 SAT MAINTAINING MID 90s. NO OTHER ACUTE CHANGES THIS SHIFT.
--- NOTE | 2022-02-05 09:05 | NUR ---
TOOK OVER CARE OF PT AT 0700, PT WAS RESTING ON 3L NC
--- NOTE | 2022-02-05 20:51 | NUR ---
PATIENT COUGHING UP THICK MUCUS DURING COUGHING SPELLS. THIS RN OFFERED PATIENT SUCTION SET UP WITH YANKAUER TO CONTAIN MUCUS. PATIENT REFUSED, STATES "I WILL SPIT MY SPIT IN THIS [place]".
--- NOTE | 2022-02-06 02:45 | NUR ---
UPDATE PATIENT ALLOWED STAFF TO BOOST HIM IN BED. PATIENT BECAME WORKED UP, TACHYPNEIC/TACHYCARDIC AND WAS AUDIBLY WHEEZING. PATIENT'S O2 SAT REMAINED UNCHANGED AND MAINTAINED >90% DURING THE EPISODE. OFFERED PATIENT 2L NC TO ASSIST WITH CALMING PATIENT DOWN. PATIENT WEARING 2L, REPORTING SOME RELIEF WHILE THIS RN STILL IN ROOM.
--- NOTE | 2022-02-06 06:07 | NUR ---
SHIFT SUMMARY PATIENT ALERT AND ORIENTED, VSS. PATIENT REMAINS ON RA WITH O2 SAT >90%. 2L NC FOR COMFORT IF PATIENT BECOME TACHYPNEIC. PATIENT REFUSES MOST CARE FROM STAFF. REFUSED 0500 LAB DRAW. LAB TO ATTEMPT DRAW SOME TIME ON DAY SHIFT. OFFERED BED BATH TO PATIENT D/T SPILLING URINAL IN BED ONTO ROCA PAD BUT PATIENT REFUSED. NO OTHER ACUTE CHANGES THIS SHIFT. WILL REPORT TO DAY SHIFT RN.
[2022-02-06 08:02] LABS: Bun/Creatinine Ratio 38.8 (12.0-20.0); Calcium, Blood 8.7 mg/dL (8.5-10.1); Creatinine, Blood 0.93 mg/dL (0.60-1.20); Potassium, Blood 4.8 mmol/L (3.5-5.5)
--- NOTE | 2022-02-06 12:49 | NUR ---
DR SUAREZ IN TO SEE PT PLAN TO DC TOMORROW.
--- NOTE | 2022-02-06 17:15 | NUR ---
SUMMARY NO ACUTE CHANGES T/O SHIFT. PT MAINTAINING SATS >90% ON RA. PRODUCTIVE/HARSH COUGH. PT WHEEZY AT TIMES TACHYPNIC. REFUSED REPOSITIONING, LOVENOX, BED BATH. ALLOWED LABS TO BE DRAWN PRIOR TO BREAKFAST THIS AM. DR SUAREZ IN TO SEE PT TODAY. DISCUSSED POSSIBLE DC TOMORROW. PT TOLERATING PO AND VOIDING IN URINAL. CALL LIGHT IN REACH.
--- NOTE | 2022-02-07 05:00 | NUR ---
SHIFT SUMMARY/TRANSFER MED NO TELE STATUS PATIENT ALERT AND ORIENTED x4, ABLE TO MAKE NEEDS KNOWN TO STAFF. VSS. PATIENT REMAINS ON RA WITH O2 SAT >90%. NO COMPLAINTS OF CHEST PAIN, SOB OR GENERALIZED PAIN. USES URINAL IN BED INDEPENDENTLY. CONTINUES TO REFUSE CARE AT TIMES. REPORT CALLED TO MEDICAL FLOOR NURSE. PATIENT TRANSFERRED TO ROOM 303 WITH ALL BELONGINGS.
--- NOTE | 2022-02-07 05:20 | NUR ---
TRANSFER: REPORT WAS RECIEVED FROM DENNIS SHEIKH WHO BROUGHT PATIENT TO ROOM. DISBURSING AGENT ASSUMED CARE OF PATIENT. REPORT WASA GIVEN THAT PATIENT HAS BEEN REFUSING CARE. PATIENT HAS SWEAT PANTS ON SATURATED URINE. BED IS ALSO COMPLETLY SATURATED. PATIENT ALLOWED REMOVEL OF SWEAT PANTS AND BED CHANGE WITHOUT DIFFICULTY AND WAS ASSISTED WITH USE OF URINAL. PATIENT WAS ORIENTED TO ROOM AND CALL WEAVER. SOB WITH HEAD OF BED DOWN OBSERVED.
--- NOTE | 2022-02-07 07:37 | NUR ---
SHIFT SUMMARY: PATIENT WAS COOPERATIVE WITH CARE. NO REFUSAL OF CARE OR MEDS. SOB WITH ACTIVITY IN BED. DOES NOT TOLERATE HOB DOWN. BED ALARM IS ON.
[2022-02-07] MEDS ORDERED: Prednisone10 MG PO (11:54)
--- NOTE | 2022-02-07 14:32 | NUR ---
DISCHARGE PATIENT HOME No acute changes to patient status. Continues to have SOB with activity, vitals stable, afebrile. Patient discharge home today, new orders for Prednisone. Sent meds to [facility], per request of daughter. at bedside to update patient/family. Vitals stable, patient left unit at 1215.
== END 2022-02-07 14:16 | disposition home or self-care (01) | DRG 189 ==
LOC: ER 11:45 → PCU 14:38 → MEDS 02-07 05:05
PROVIDERS: Emergency Medicine; Nurse Practitioner Acute Care; ADMIT Internal Medicine
PROC: 5A09457 Assistance with Respiratory Ventilation, 24-96 Consecutive Hours, Continuous Positive Airway Pressure (ICD-10-PCS; principal; 2022-02-03)
DX: J96.01 Acute respiratory failure with hypoxia (principal); E43 Unspecified severe protein-calorie malnutrition; J44.1 Chronic obstructive pulmonary disease with (acute) exacerbation; I48.20 Chronic atrial fibrillation, unspecified; E87.2 Acidosis; R65.10 Systemic inflammatory response syndrome (SIRS) of non-infectious origin without acute organ dysfunction; R64 Cachexia; J84.9 Interstitial pulmonary disease, unspecified; J44.0 Chronic obstructive pulmonary disease with (acute) lower respiratory infection; Z20.822 Contact with and (suspected) exposure to COVID-19; J20.9 Acute bronchitis, unspecified; M54.9 Dorsalgia, unspecified; I25.10 Atherosclerotic heart disease of native coronary artery without angina pectoris; G89.29 Other chronic pain; N40.0 Benign prostatic hyperplasia without lower urinary tract symptoms; I10 Essential (primary) hypertension; E78.5 Hyperlipidemia, unspecified; Z68.20 Body mass index [BMI] 20.0-20.9, adult; Z79.82 Long term (current) use of aspirin; Z79.899 Other long term (current) drug therapy; Z99.81 Dependence on supplemental oxygen; Z95.5 Presence of coronary angioplasty implant and graft; Z87.891 Personal history of nicotine dependence
CPT/HCPCS: 0241U; 36415; 36600; 71045; 80048; 80053; 81003; 82803; 83880; 84443; 84484; 85025; 93005; 93010; 94640; 94660; 94664; 94760; 94762; 96365; 96375; 99285-25; A9270; J0456; J2930; J7040; J7050; J7120; J7512